=== PATIENT | male | born 1975 | race Hispanic/Latino ===

== ENCOUNTER 2019-07-30 14:56 | Emergency (ER) | payer SELFPAY ==
[~2019-07-30] VITALS: Ht 175.3 cm; Wt 106.6 kg
[2019-07-30] MEDS ORDERED: IBUPROFEN 200 MG TAB PO ONE (15:27)
[2019-07-30] MEDS ORDERED: IBUPROFEN 200 MG TAB ONE (15:56)
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
--- NOTE | 2019-07-30 16:17 | Diagnostic Imaging Report ---
History: Comparison studies: None Technique: Axial images were obtained from the skull base to the vertex. Coronal and sagittal reconstructions obtained from the axial data. Dose modulation, iterative reconstruction, and/or weight based adjustment of the mA/kV was utilized to reduce the radiation dose to as low as reasonably achievable. Intravenous contrast: None Findings: Scalp/skull: No abnormalities. No fractures, blastic or lytic lesions. Extra-axial spaces: No masses. No fluid collections. Brain sulci: Appropriate for age. Ventricles: Normal in size and configuration. No hydrocephalus. Parenchyma: No abnormal densities. No masses, hemorrhage, acute or chronic cortical vascular insults. Sellar/suprasellar region: No abnormalities Craniocervical junction: Patent foramen magnum. No Chiari one malformation. Incidental findings: None. IMPRESSION: No abnormalities. Signed by: Dr. Yovani Crowley M.D. on 07/30/2019 4:14 PM
--- NOTE | 2019-07-30 16:19 | Diagnostic Imaging Report ---
History: Trauma Comparison studies: None Technique: Axial images were obtained through the cervical region.. Coronal and sagittal images reconstructed from the axial data. Dose modulation, iterative reconstruction, and/or weight based adjustment of the mA/kV was utilized to reduce the radiation dose to as low as reasonably achievable. Intravenous contrast: None Findings: Fractures: None. Soft tissues: No gross abnormalities. Atlantoaxial articulation: Intact. Alignment: Normal lordosis. No scoliosis. Cervicomedullary junction: No abnormalities. The foramen magnum is patent. Vertebrae: No infection or neoplasm. Degenerative changes: Mildly degenerated facets on the left at C5-6 and bilaterally at C6-7. Patent spinal canal and foramina. Incidental calcified ligamentum nuchae at C4-5 IMPRESSION: 1. No acute abnormalities. No fractures 2. Cannot adequately evaluate for ligament, spinal cord and or vascular abnormalities. Signed by: Dr. Yovani Crwoley M.D. on 07/30/2019 4:16 PM
[2019-07-30] MEDS ORDERED: CYCLOBENZAPRINE5 MG PO (16:48)
[2019-07-30] MEDS ORDERED: NAPROSYN500 MG PO (16:51)
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
--- OUTSIDE RECORDS SUMMARY | 2019-08-08 11:02 | XMS REPORT ---
Author Author Admin, [place] Organization [facility] Address Unknown Phone Unavailable Allergies, Adverse Reactions, Alerts Allergy Name Reaction Description Start Date Severity Status Provider PENICILLIN rash Severe Active Nettie Harrington RN Conditions or Problems Problem Name Problem Code Onset Date Status Entry Date Provider Comment Standard Description Annotate Increased cholesterol 272.0 Active Noel NEWSOME-Karan Pure hypercholesterolemia Prediabetes 790.29 Active Noel NEWSOME-Karan Other abnormal glucose Annual exam V70.0 Active Noel NEWSOME-Karan Routine general medical examination at a health care facility BMI 33.0-33.9 Active Noel GUTIERREZP-C Body Mass Index 33.0-33.9, adult Obesity Active Noel NEWSOME-Karan Obesity, unspecified Std screening V74.5 Active Nettie Harrington RN Screening examination for venereal disease Blood in stool ICD-578.1 Inactive Nettie Harrington RN Blood in stool 578.1 Resolved Nettie Harrington RN Blood in stool r/o hemorrhoid or UC; send to GI or for colonoscopy if gets insurance or gold card Medication List Medication Instructions Start Date Stop Date Generic Name [facility] Status Provider Patient Instruction VITAMINS VITAMINS Active Nettie Harrington RN Active HYDROCORTISONE ACETATE 25 MG RECTAL SUPPOSITORY 1 suppository nightly for 1 week then As Needed HYDROCORTISONE ACETATE 25 MG RECTAL SUPPOSITORY [id number] HYDROCORTISONE ACETATE Inactive HYDROCORTISONE ACETATE 25 MG RECTAL SUPPOSITORY 1 suppository nightly for 1 week then As Needed HYDROCORTISONE ACETATE [id number] No Longer Active Nettie Harrington RN Active Vital Signs Date Name Value Unit Range Description blood pressure, diastolic, second observation 83 mm[Hg] BP pena blood pressure, diastolic 88 mm[Hg] BP pena blood pressure, systolic, second observation 140 mm[Hg] BP sys blood pressure, systolic 157 mm[Hg] BP sys height E&M 69 [in_us] Bdy height pulse rate E&M 66 /min Heart rate pulse rate #2 57 Heart rate respiratory rate E&M 16 /min Resp rate temperature E&M 98.4 [degF] Body temperature weight E&M 217.13 [lb_av] Weight Measured blood pressure, diastolic 87 mm[Hg] BP pena blood pressure, systolic 138 mm[Hg] BP sys pulse rate E&M 69 /min Heart rate temperature E&M 97.6 [degF] Body temperature Diagnostic Results Date Name Value Unit Range Description Lab Report: CBC With Differential/Platelet, Comp. Metabolic Panel (14), ... - Hematology lymphocyte count, blood, automated 1.7 X10E3/UL 10*3/mm3 0.7-3.1 Lab Report: UA/M w/rflx Culture, Routine, Microscopic Examination, UA/M ... - Urinalysis pH, urine, semiquantitative 5.5 5.0-7.5 epithelial cells, urine None seen /[LPF] 0 - 10 Lab Report: CBC With Differential/Platelet, Comp. Metabolic Panel (14), ... - Chemistry urea nitrogen, blood 16 mg/dL 6-24 Lab Report: UA/M w/rflx Culture, Routine, Microscopic Examination, UA/M ... - Urinalysis bilirubin, urine Negative Negative Lab Report: CBC With Differential/Platelet, Comp. Metabolic Panel (14), ... - Chemistry creatinine, serum 1.10 mg/dL 0.76-1.27 Lab Report: CBC With Differential/Platelet, Comp. Metabolic Panel (14), ... - Hematology mean corpuscular volume, RBC 88 fL 79-97 Lab Report: CBC With Differential/Platelet, Comp. Metabolic Panel (14), ... - Chemistry chloride, serum 98 mmol/L 97-108 triglyceride, serum, fasting 284 mg/dL 0-149 Lab Report: CBC With Differential/Platelet, Comp. Metabolic Panel (14), ... - Hematology erythrocyte (RBC) count 5.55 X10E6/UL 10*6/mm3 4.14-5.80 Lab Report: CBC With Differential/Platelet, Comp. Metabolic Panel (14), ... - Chemistry Estimated Glomerular Filtration Rate (calc) 82 mL/min/1.73m2 >59 Lab Report: CBC With Differential/Platelet, Comp. Metabolic Panel (14), ... - Hematology platelet count 338 X10E3/UL 10*3/mm3 150-379 Lab Report: UA/M w/rflx Culture, Routine, Microscopic Examination, UA/M ... - Urinalysis appearance, urine Clear Clear Lab Report: CBC With Differential/Platelet, Comp. Metabolic Panel (14), ... - Hematology red blood cell distribution width 14.2 % 12.3-15.4 Lab Report: CBC With Differential/Platelet, Comp. Metabolic Panel (14), ... - Chemistry protein, total, serum 7.2 g/dL 6.0-8.5 HDL cholesterol, serum 40 mg/dL >39 Lab Report: UA/M w/rflx Culture, Routine, Microscopic Examination, UA/M ... - Urinalysis mucus on urinalysis Present Not Estab. Lab Report: UA/M w/rflx Culture, Routine, Microscopic Examination, UA/M ... - Chemistry specific gravity, body fluid 1.023 1.005-1.030 Lab Report: CBC With Differential/Platelet, Comp. Metabolic Panel (14), ... - Hematology eosinophils as percent of blood leukocytes 3 % Lab Report: UA/M w/rflx Culture, Routine, Microscopic Examination, UA/M ... - Urinalysis glucose, urine, semiquantitative Trace Negative Lab Report: CBC With Differential/Platelet, Comp. Metabolic Panel (14), ... - Chemistry albumin/globulin ratio, serum 1.6 1.1-2.5 Absolute Neutrophils 5.4 X10E3/UL 10*3/uL 1.4-7.0 Lab Report: CBC With Differential/Platelet, Comp. Metabolic Panel (14), ... - Hematology basophil count, absolute 0.0 x10E3/uL 0.0-0.2 Lab Report: UA/M w/rflx Culture, Routine, Microscopic Examination, UA/M ... - Chemistry microalbumin/creatinine ratio, urine 12.6 MG/G CREAT ug/mg 0.0-30.0 Lab Report: Ct, Ng, Trich vag by YVETTE, Ct/GC YVETTE, Pharyngeal - Microbiology Neisseria gonorrhoeae, throat culture Negative Negative Lab Report: CBC With Differential/Platelet, Comp. Metabolic Panel (14), ... - Chemistry alanine aminotransferase (SGPT), serum 42 U/L 0-44 LDL cholesterol, serum 130 mg/dL 0-99 Lab Report: CBC With Differential/Platelet, Comp. Metabolic Panel (14), ... - Hematology monocytes as percent of blood leukocytes 9 % Lab Report: CBC With Differential/Platelet, Comp. Metabolic Panel (14), ... - Chemistry cholesterol, serum 227 mg/dL 100-199 Lab Report: UA/M w/rflx Culture, Routine, Microscopic Examination, UA/M ... - Basic Occult Blood, urine Negative Negative Lab Report: CBC With Differential/Platelet, Comp. Metabolic Panel (14), ... - Hematology mean corpuscular hemoglobin concentration, RBC 34.7 G/DL % 31.5-35.7 hemoglobin, blood 17.0 g/dL 12.6-17.7 Lab Report: UA/M w/rflx Culture, Routine, Microscopic Examination, UA/M ... - Urinalysis leukocyte esterase, urine, by dipstick Negative Negative urinalysis, microscopic examination MICRON Lab Report: CBC With Differential/Platelet, Comp. Metabolic Panel (14), ... - Hematology leukocyte count, blood 8.1 X10E3/UL 10*3/mm3 3.4-10.8 Lab Report: UA/M w/rflx Culture, Routine, Microscopic Examination, UA/M ... - Urinalysis Crystal Type, Urine Uric Acid N/A protein, urine, semiquantitative (dipstick) Negative Negative/Trace Lab Report: CBC With Differential/Platelet, Comp. Metabolic Panel (14), ... - Hematology hematocrit, blood 49.0 % 37.5-51.0 Lab Report: CBC With Differential/Platelet, Comp. Metabolic Panel (14), ... - Chemistry prostate specific antigen 0.3 ng/mL 0.0-4.0 globulin, serum 2.8 1.5-4.5 Lab Report: UA/M w/rflx Culture, Routine, Microscopic Examination, UA/M ... - Urinalysis bacteria, urine microscopy None seen None seen/Few urine crystals, microscopic Present /[HPF] N/A Lab Report: CBC With Differential/Platelet, Comp. Metabolic Panel (14), ... - Chemistry thyroid stimulating hormone, serum 1.460 u[iU]/mL 0.450-4.500 albumin, serum 4.4 g/dL 3.5-5.5 very low density lipoproteins 57 mg/dL 5-40 Lab Report: UA/M w/rflx Culture, Routine, Microscopic Examination, UA/M ... - Urinalysis urobilinogen, urine, semiquantitative (dipstick) 0.2 0.2-1.0 Lab Report: CBC With Differential/Platelet, Comp. Metabolic Panel (14), ... - Hematology basophils as percent of blood leukocytes 0 % Lab Report: CBC With Differential/Platelet, Comp. Metabolic Panel (14), ... - Chemistry calcium, serum 9.2 mg/dL 8.7-10.2 Lab Report: UA/M w/rflx Culture, Routine, Microscopic Examination, UA/M ... - Urinalysis microalbumin/total urine volume 23.3 mg/L Not Estab. Lab Report: CBC With Differential/Platelet, Comp. Metabolic Panel (14), ... - Hematology monocyte count, blood, automated 0.7 X10E3/UL 10*3/uL 0.1-0.9 Lab Report: CBC With Differential/Platelet, Comp. Metabolic Panel (14), ... - Chemistry immature granulocytes, percentage of total cells, blood 0 % urea nitrogen/creatinine ratio, serum 15 9-20 Lab Report: CBC With Differential/Platelet, Comp. Metabolic Panel (14), ... - Genetics/fertility eGFR if 95 mL/min/1.73m2 >59 Lab Report: UA/M w/rflx Culture, Routine, Microscopic Examination, UA/M ... - Urinalysis WBC urine on microscopy 0-5 /hpf {Cells}/[HPF] 0 - 5 Lab Report: CBC With Differential/Platelet, Comp. Metabolic Panel (14), ... - Hematology lymphocytes as percent of blood leukocytes 21 % Lab Report: UA/M w/rflx Culture, Routine, Microscopic Examination, UA/M ... - Chemistry RBC, Urine 0-2 /hpf /[HPF] 0 - 2 Lab Report: CBC With Differential/Platelet, Comp. Metabolic Panel (14), ... - Chemistry carbon dioxide, venous blood 27 mmol/L 18-29 Lab Report: RPR, Rfx Qn RPR/Confirm TP, Panel 190273 - Serology rapid plasma reagin antibody, serum Non Reactive Non Reactive Lab Report: Ct, Ng, Trich vag by YVETTE, Ct/GC YVETTE, Pharyngeal - Lab chlamydia DNA probe Negative Negative Lab Report: Ct, Ng, Trich vag by YVETTE, Ct/GC YVETTE, Pharyngeal - Microbiology Neisseria gonorrhoeae DNA probe Negative Negative Lab Report: CBC With Differential/Platelet, Comp. Metabolic Panel (14), ... - Chemistry sodium, serum 142 mmol/L 744-568 2887/08/30 hemoglobin A1C, blood, as % of total hemoglobin 5.8 % 4.8-5.6 alkaline phosphatase, serum 58 U/L 39-117 Lab Report: UA/M w/rflx Culture, Routine, Microscopic Examination, UA/M ... - Urinalysis ketones, urine, by test strip Negative Negative Lab Report: CBC With Differential/Platelet, Comp. Metabolic Panel (14), ... - Hematology Eosinophil Absolute Count 0.3 X10E3/UL 10*3/uL 0.0-0.4 mean corpuscular hemoglobin, RBC 30.6 pg 26.6-33.0 Nurse Visit: Nurse Visit - [facility] - Chemistry HIV rapid test results negative Lab Report: UA/M w/rflx Culture, Routine, Microscopic Examination, UA/M ... - Chemistry creatinine, random, urine 184.8 mg/dL Not Estab. Lab Report: CBC With Differential/Platelet, Comp. Metabolic Panel (14), ... - Chemistry bilirubin, serum, total 0.3 mg/dL 0.0-1.2 Lab Report: CBC With Differential/Platelet, Comp. Metabolic Panel (14), ... - Hematology neutrophils as percent of blood leukocytes 67 % Lab Report: UA/M w/rflx Culture, Routine, Microscopic Examination, UA/M ... - Microbiology microscopic exam See below: Lab Report: UA/M w/rflx Culture, Routine, Microscopic Examination, UA/M ... - Chemistry nitrate, urine Negative Negative Lab Report: CBC With Differential/Platelet, Comp. Metabolic Panel (14), ... - Chemistry blood glucose, random 89 mg/dL 65-99 potassium, serum 4.2 mmol/L 3.5-5.2 aspartate aminotransferase (SGOT), serum 25 U/L 0-40 Lab Report: UA/M w/rflx Culture, Routine, Microscopic Examination, UA/M ... - Urinalysis urine color Yellow Yellow Encounters Date Encounter Provider Code Facility 10:34:59 MANAGEMENT LECTURER Est Patient Nurse - Only Visit - 46220 Nettie Harrington RN CPT-[id number] [facility] 16:54:09 MANAGEMENT LECTURER Est Patient Nurse - Only Visit - 44073 Nettie Harrington RN CPT-51595 [facility] 10:43:53 MANAGEMENT LECTURER Est Patient Nurse - Only Visit - 26243 Nettie Harrington RN CPT-00655 [facility] 13:25:46 CDT New Patient Detailed - 62707 Noel Vasquez Leonel SENIOR PROCESS ANALYST-C CPT-26006 [facility] 09:33:18 CDT Est Patient Nurse - Only Visit - 45025 Nettie Harrington RN CPT-78516 [facility] Procedures Code Procedure Name Date Entry Date Standard Description CPT-43774 Alere Determine HIV-1/2 Ag/Ab Combo - In House 10:34:58 MANAGEMENT LECTURER CPT-06551 Handling of specimen for transfer 13:25:48 CDT CPT-60770 Venipuncture 13:25:47 CDT CPT-13703 Jy[facility]i HIV - In House 09:33:17 CDT
== END 2019-07-30 16:59 | disposition home or self-care (01) ==
LOC: FSED 14:56
DX: S00.83XA Contusion of other part of head, initial encounter (principal); M54.2 Cervicalgia; M25.512 Pain in left shoulder; M25.511 Pain in right shoulder; M54.5 Low back pain; V44.5XXA Car driver injured in collision with heavy transport vehicle or bus in traffic accident, initial encounter; Y92.488 Other paved roadways as the place of occurrence of the external cause
CPT/HCPCS: 70450; 71046; 72100; 72125; 99283